=== PATIENT | male | born 1970 | race Caucasian/White ===

== ENCOUNTER 2017-04-06 17:04 | Emergency (ER) | payer BC ==
[~2017-04-06] VITALS: Ht 177.8 cm; Wt 77.1 kg
[2017-04-06 18:29] VITALS: BP 134/89
--- NOTE | 2017-04-06 18:38 | REP ---
LEFT KNEE, FIVE VIEWS: FINDINGS: There is no evidence of an acute fracture, dislocation or intrinsic bone disease. IMPRESSION: No fracture or dislocation. Signed by Mario Bailey MD 04/06/2017 07:17 P
== END 2017-04-06 18:37 | disposition home or self-care (01) ==
LOC: M ED 18:25
DX: S80.02XA Contusion of left knee, initial encounter (principal); W22.8XXA Striking against or struck by other objects, initial encounter; Y92.89 Other specified places as the place of occurrence of the external cause; Y93.89 Activity, other specified; Y99.9 Unspecified external cause status

== ENCOUNTER → 2017-06-30 | Outpatient (REF) | payer BC ==
[2017-06-30 13:21] LABS: MEAN CORPUSCULAR HEMOGLOBIN 33.5 pg (27.0-33.0); MEAN CORPUSCULAR HGB CONC 35.4 g/dl (32.0-36.5); MEAN CORPUSCULAR VOLUME 94.7 fl (80.0-96.0); RED CELL DISTRIBUTION WIDTH 12.3 % (11.5-14.5); WHITE BLOOD COUNT 4.8 K/mm3 (4.0-10.0)
[2017-06-30 13:46] LABS: VITAMIN B12 LEVEL 292 PG/ML (247-911)
[2017-06-30 13:51] LABS: CHOLESTEROL LEVEL 197 MG/DL (<200); FERRITIN 558 NG/ML (26-388); TOTAL IRON BINDING CAPACITY 308 UG/DL (250-450); TRIGLYCERIDES LEVEL 164 MG/DL (<150)
[2017-06-30 13:57] LABS: ANISOCYTOSIS 1+
[2017-06-30 14:02] LABS: ERYTHROCYTE SEDIMENTATION RATE 3 mm/hr (0-15)
== END ==
LOC: M SFHCPLAZ 11:49
PROVIDERS: ATTEND Family Medicine
DX: R20.2 Paresthesia of skin (principal); D72.819 Decreased white blood cell count, unspecified; E83.119 Hemochromatosis, unspecified; R73.01 Impaired fasting glucose; E53.8 Deficiency of other specified B group vitamins

== ENCOUNTER → 2017-07-07 | Outpatient (CLI) | payer BC ==
--- NOTE | 2017-07-07 18:44 | REP ---
MRI BRAIN WITHOUT AND WITH CONTRAST: HISTORY: Paresthesias. CONTRAST: ProHance, 15 mL COMPARISON: 10/04/2011 There are no areas of abnormal signal intensity in the brain. There is no intraparenchymal hemorrhage, infarct, mass or midline shift. The sella turcica is partially empty. There is no abnormal enhancement. The ventricular system is normal in appearance. There is no extracerebral collection. Minimal mucosal thickening is present in the right maxillary sinus. IMPRESSION: There is no intracranial lesion. Signed by Stephon Hankins MD 07/11/2017 08:13 A
== END ==
LOC: M RAD 12:42
PROVIDERS: ATTEND Family Medicine
DX: R20.2 Paresthesia of skin (principal)

== ENCOUNTER → 2017-11-25 | Outpatient (REF) | payer BC ==
[2017-11-25 19:03] LABS: HEMATOCRIT 42.2 % (42.0-52.0)
[2017-11-25 19:10] LABS: APPEARANCE, URINE CLEAR (CLEAR); BACTERIA, URINE AUTO NEGATIVE (NEGATIVE); BILIRUBIN, URINE AUTO NEGATIVE (NEGATIVE); BLOOD, URINE BLOOD NEGATIVE (NEGATIVE); COLOR, URINE YELLOW (YELLOW); GLUCOSE, URINE (UA) AUTO NEGATIVE (NEGATIVE); KETONE, URINE AUTO NEGATIVE (NEGATIVE); LEUKOCYTE ESTERASE, URINE AUTO NEGATIVE (NEGATIVE); NITRITE, URINE AUTO NEGATIVE (NEGATIVE); PROTEIN, URINE AUTO NEGATIVE (NEGATIVE); RBC, URINE AUTO 0 /HPF (0-3); SPECIFIC GRAVITY URINE AUTO 1.018 (1.002-1.035); SQUAMOUS EPITHELIAL CELL UR AU 0 /HPF (0-6); UROBILINOGEN, URINE AUTO 0.2 mg/dL (0.0-2.0); WBC, URINE AUTO 0 /HPF (0-3)
[2017-11-25 19:17] LABS: ALBUMIN 4.1 GM/DL (3.2-5.2); ALBUMIN/GLOBULIN RATIO 1.41 (1.00-1.93); ALKALINE PHOSPHATASE 60 U/L (45-117); ALT/SGPT 51 U/L (12-78); ANION GAP 7 MEQ/L (8-16); AST/SGOT 27 U/L (7-37); BILIRUBIN,TOTAL 0.4 MG/DL (0.2-1.0); BLOOD UREA NITROGEN 18 MG/DL (7-18); CALCIUM LEVEL 9.1 MG/DL (8.5-10.1); CARBON DIOXIDE LEVEL 29 MEQ/L (21-32); CHLORIDE LEVEL 104 MEQ/L (98-107); CREATININE FOR GFR 0.79 MG/DL (0.70-1.30); GLOMERULAR FILTRATION RATE > 60.0 (>60); GLUCOSE, FASTING 89 MG/DL (70-105); POTASSIUM SERUM 4.4 MEQ/L (3.5-5.1); SODIUM LEVEL 140 MEQ/L (136-145)
[2017-11-25 19:30] LABS: ESTIMATED AVERAGE GLUCOSE 117 MG/DL (60-110); HEMOGLOBIN A1c 5.7 %
[2017-11-25 19:31] LABS: CREATININE, URINE 97.8 MG/DL; MAU/CREAT RATIO 8.1 MCG/MG (0.0-30.0)
[2017-11-27 11:44] LABS: VITAMIN B12 LEVEL 617 PG/ML (247-911)
[2017-11-28 13:05] LABS: PRETREATED FOLATE FOR RBCFOL 9.7 NG/ML; RBC FOLATE 482.7 NG/ML (280-791)
== END ==
LOC: M SFHCPLAZ 10:19
DX: R73.01 Impaired fasting glucose (principal); E53.8 Deficiency of other specified B group vitamins
CPT/HCPCS: 82607

== ENCOUNTER → 2018-11-23 | Outpatient (REF) | payer BC | LOC: M LAB REF 13:28 | PROVIDERS: ATTEND Nurse Practitioner Adult Health | DX: E83.110 Hereditary hemochromatosis (principal) ==

== ENCOUNTER → 2019-04-08 | Outpatient (CLI) | payer BC ==
[~2019-04-08] MED LIST: ISOVUE-370 76% 100ML VIAL (Q9967) As Ordered ONE; PROAAER10 INH; RANI1SYP PO; VITA100018 PO
--- NOTE | 2019-04-09 08:30 | REP ---
Clinical: Hematuria. Technique: Axial precontrast, contrast enhanced, and delayed images of the abdomen and pelvis using 100 ml Isovue 370 intravenous contrast material with coronal and sagittal re-formations as well as 3-D MIP urograms. Findings: Evaluation of the urinary tract system demonstrates normal kidneys, ureters and bladder. No hydroureteronephrosis, nephroureterolithiasis, perinephric stranding, renal cystic or mass lesion appreciated. Bilateral ureters and bladder appear normal in all phases of evaluation. Liver, spleen, pancreas, gallbladder, and bilateral adrenal glands are normal. The enteric system is without obstruction or acute inflammatory process. Pelvis demonstrates age appropriate prostate/seminal vesicles. Bladder normal. No ascites. No free air. No adenopathy. 1 cm fat containing periumbilical hernia noted. Abdominal aorta and vasculature appear normal. Musculoskeletal structures without focal osseous abnormality. Lung bases clear. Impression: Normal examination. No evidence for urinary tract pathology. No acute abdominopelvic pathology. Incidental 1 cm fat containing periumbilical hernia. Electronically Signed by Flaco Monteiro MD 04/09/2019 08:21 A
== END ==
LOC: M RAD 18:22
PROVIDERS: ATTEND Internal Medicine Nephrology
DX: R31.9 Hematuria, unspecified (principal); K42.9 Umbilical hernia without obstruction or gangrene
CPT/HCPCS: 74178; Q9967

== ENCOUNTER → 2019-07-30 | Outpatient (REF) | payer BC ==
[~2019-07-30] MED LIST changes: -ISOVUE-370 76% 100ML VIAL (Q9967) As Ordered ONE
== END ==
LOC: M LAB REF 13:10
PROVIDERS: ATTEND Nurse Practitioner Adult Health
DX: E83.110 Hereditary hemochromatosis (principal)

== ENCOUNTER → 2020-07-31 | Outpatient (REF) | payer BC | LOC: M LAB REF 17:13 | PROVIDERS: ATTEND Nurse Practitioner Adult Health | DX: Z00.00 Encounter for general adult medical examination without abnormal findings (principal); E83.110 Hereditary hemochromatosis ==

== ENCOUNTER → 2021-01-05 | Outpatient (CLI) | payer BC ==
--- NOTE | 2021-01-05 18:35 | REP ---
INDICATION: CONTUSION OF BILATERAL FRONT WALL OF THORAX, INIT COMPARISON: None. TECHNIQUE: AP, lateral, and swimmers views. FINDINGS: Alignment and kyphosis is maintained. Vertebral bodies intact. No acute fracture / compression injury or subluxation. IMPRESSION: No acute fracture/compression injury or subluxation. <Electronically signed by Flaco Monteiro > 01/05/21 [id number]
--- NOTE | 2021-01-05 18:36 | REP ---
INDICATION: CONTUSION OF BILATERAL FRONT WALL OF THORAX, INIT COMPARISON: None. TECHNIQUE: Frontal view of the chest with multiple views of the right and left hemithorax. Five total views. FINDINGS: Frontal view of the chest demonstrates no acute cardiopulmonary process, contusion, effusion, or pneumothorax. Multiple views of the right and left hemithorax demonstrates no acute rib fracture/injury or pathology. IMPRESSION: Normal bilateral rib series. No obvious acute rib injury. <Electronically signed by Flaco Monteiro > 01/05/21 [id number]
== END ==
LOC: M RAD 17:52
PROVIDERS: ATTEND Physician Assistant
DX: S20.213A Contusion of bilateral front wall of thorax, initial encounter (principal); S30.0XXA Contusion of lower back and pelvis, initial encounter

== ENCOUNTER → 2021-10-05 | Outpatient (REF) | payer BC ==
[~2021-10-05] MED LIST changes: +NOXI1TAB PO; +RANI15TA PO
[2021-10-05 17:34] LABS: PERCENT SATURATION 21.7 % (19.7-50.0)
== END ==
LOC: M LAB REF 16:44
PROVIDERS: ATTEND Nurse Practitioner Adult Health
DX: E83.110 Hereditary hemochromatosis (principal)

== ENCOUNTER → 2021-12-13 | Outpatient (CLI) | payer OTHER ==
[~2021-12-13] MED LIST changes: +ISOVUE-370 76% 100ML VIAL ONE; -RANI15TA PO
== END ==
LOC: M PLAIMG 09:09
PROVIDERS: ATTEND Internal Medicine Hematology & Oncology
DX: E83.119 Hemochromatosis, unspecified (principal)
CPT/HCPCS: 74183; Q9967

== ENCOUNTER → 2022-03-30 | Outpatient (REF) | payer OTHER ==
[~2022-03-30] MED LIST changes: -ISOVUE-370 76% 100ML VIAL ONE; +RANI15TA PO
[2022-04-01 13:17] LABS: AMORPHOUS SEDIMENT MODERATE (NEGATIVE); BACTERIA, URINE AUTO NEGATIVE (NEGATIVE); CALCIUM OXALATE CRYSTALS SMALL; MUCUS, URINE SMALL (NEGATIVE); RBC, URINE AUTO 1 /HPF (0-3); SQUAMOUS EPITHELIAL CELL UR AU 0 /HPF (0-6)
== END ==
LOC: M LAB REF 12:18
PROVIDERS: ATTEND Nurse Practitioner Adult Health
DX: R31.9 Hematuria, unspecified (principal)

== ENCOUNTER → 2022-04-22 | Outpatient (REF) | payer OTHER ==
[2022-04-22 13:22] LABS: FERRITIN 508 NG/ML (26-388); IRON (FE) 166 UG/DL (65-175)
== END ==
LOC: M LAB REF 11:56
PROVIDERS: ATTEND Nurse Practitioner Adult Health
DX: E83.110 Hereditary hemochromatosis (principal)

== ENCOUNTER → 2022-11-28 | Outpatient (CLI) | payer OTHER ==
[~2022-11-28] MED LIST changes: +ALBU90AE IH; +CYAN500T14 PO; +VALS40TA9 PO; +VITMTA PO
== END ==
LOC: M LABSMTC 09:34
PROVIDERS: ATTEND Anesthesiology
DX: Z01.818 Encounter for other preprocedural examination (principal)

== ENCOUNTER → 2022-12-26 | Outpatient (CLI) | payer OTHER | LOC: M LABSMTC 07:43 | PROVIDERS: ATTEND Anesthesiology | DX: Z01.812 Encounter for preprocedural laboratory examination (principal); Z11.52 Encounter for screening for COVID-19 ==

== ENCOUNTER 2022-12-28 07:38 | Day surgery (SDC) | payer OTHER ==
[~2022-12-28] VITALS: Ht 177.8 cm; Wt 77.1 kg
[~2022-12-28 07:38] MED LIST changes: +BSS IRRIG/VANCO(10MG)/TOBRA(5MG)/EPINEPH(1:1000-0.5CC)500ML BAG-ORONLY IR ONE; +CEFUROXIME 1MG/0.1ML INTRACAMERAL INJ As Ordered ONE; +CYCLOPENTOLATE 1% OPHTH SOLN 2ML BTL OS SCH; +LIDOCAINE 1% SDV 5ML VIAL As Ordered ONE; +LIDOCAINE 3.5 % 1ML OPHTH TOPICAL GEL OU ONE; +OFLOXACIN 0.3 % (OCUFLOX) OPTH SOL 5ML OS ONE; +PHENYLEPHRINE 10% OPHTH SOL 5ML OS PRN; +PHENYLEPHRINE 2.5% OPHTH SOL 2ML OS SCH; +TROPICAMIDE 1% OPHTH SOLN 15ML OS SCH
[2022-12-28] MEDS ORDERED: MIDAZOLAM INJ 2MG/2ML VIAL As Ordered ONE (10:52)
[2022-12-28] MEDS ORDERED: fentaNYL 100 MCG/2 ML INJECTION As Ordered ONE (10:52)
[2022-12-28 11:35] VITALS: BP 155/93
== END 2022-12-28 11:49 | disposition home or self-care (01) ==
LOC: M SDC 07:38
PROVIDERS: ATTEND Ophthalmology
DX: H25.12 Age-related nuclear cataract, left eye (principal); H57.03 Miosis; H54.8 Legal blindness, as defined in USA; I10 Essential (primary) hypertension; E83.119 Hemochromatosis, unspecified; D86.0 Sarcoidosis of lung; K21.9 Gastro-esophageal reflux disease without esophagitis; Z79.899 Other long term (current) drug therapy
CPT/HCPCS: 66982; 92015; J0697; J2250; J3010

== ENCOUNTER → 2023-08-14 | Outpatient (CLI) | payer OTHER ==
[~2023-08-14] MED LIST changes: -BSS IRRIG/VANCO(10MG)/TOBRA(5MG)/EPINEPH(1:1000-0.5CC)500ML BAG-ORONLY IR ONE; -CEFUROXIME 1MG/0.1ML INTRACAMERAL INJ As Ordered ONE; -CYCLOPENTOLATE 1% OPHTH SOLN 2ML BTL OS SCH; -LIDOCAINE 1% SDV 5ML VIAL As Ordered ONE; -LIDOCAINE 3.5 % 1ML OPHTH TOPICAL GEL OU ONE; -OFLOXACIN 0.3 % (OCUFLOX) OPTH SOL 5ML OS ONE; -PHENYLEPHRINE 10% OPHTH SOL 5ML OS PRN; -PHENYLEPHRINE 2.5% OPHTH SOL 2ML OS SCH; -TROPICAMIDE 1% OPHTH SOLN 15ML OS SCH
[2023-08-14 17:57] LABS: PERCENT SATURATION 27.1 % (19.7-50.0)
[2023-08-14 17:59] LABS: FERRITIN 427.6 NG/ML (10.5-307.3)
== END ==
LOC: M WUC 15:42
PROVIDERS: ATTEND Nurse Practitioner Family
DX: E83.110 Hereditary hemochromatosis (principal); M47.892 Other spondylosis, cervical region

== ENCOUNTER → 2024-03-05 | Outpatient (REF) | payer OTHER ==
[2024-03-05 14:30] LABS: FERRITIN 286.4 NG/ML (10.5-307.3)
[2024-03-05 14:31] LABS: PERCENT SATURATION 24.5 % (19.7-50.0)
== END ==
LOC: M LAB REF 13:26
PROVIDERS: ATTEND Nurse Practitioner Family
DX: E83.110 Hereditary hemochromatosis (principal)

== ENCOUNTER → 2024-11-04 | Outpatient (REF) | payer OTHER ==
[~2024-11-04] MED LIST changes: -ALBU90AE IH; +ALBU90AE2 IH
[2024-11-04 13:25] LABS: PERCENT SATURATION 45.1 % (19.7-50.0)
[2024-11-04 13:28] LABS: FERRITIN 304.5 NG/ML (10.5-307.3)
== END ==
LOC: M LAB REF 12:49
PROVIDERS: ATTEND Nurse Practitioner Family
DX: E83.110 Hereditary hemochromatosis (principal)

== ENCOUNTER → 2025-11-05 | Outpatient (REF) | payer OTHER ==
[2025-11-05 12:56] LABS: IRON (FE) 148.0 UG/DL (65-175); PERCENT SATURATION 47.1 % (19.7-50.0)
== END ==
LOC: M LAB REF 12:15
PROVIDERS: ATTEND Nurse Practitioner Family
DX: E83.110 Hereditary hemochromatosis (principal)